=== PATIENT | male | born 1990 | race African-American/Black ===

== ENCOUNTER 2021-03-19 18:24 | Emergency (ER) | payer SELFPAY ==
[~2021-03-19] VITALS: Ht 165.1 cm; Wt 111.0 kg
--- NOTE | 2021-03-19 19:22 | PHYS DOC ---
Past History Past Surgical History: No Surgical History Alcohol Use: Occasionally Adult General Chief Complaint Chief Complaint: ABDOMINAL PAIN HPI HPI Patient is a 31-year-old male, otherwise healthy who presents with a chief complaint of a month of intermittent, abdominal pain, around his bellybutton, coming and going, 6 out of 10 at its worst, dull and achy in nature with no radiation or associated nausea, vomiting, diarrhea. States that he has a friend who is a nurse and who thinks it may be a hernia. Denies any recent traumas, illnesses, fevers, chest pain, shortness of breath, dysuria, hematuria, blood in the stool or diarrhea. States he is otherwise eating and drinking normally. Denies any alcohol or drug use. Review of Systems Review of Systems Review of systems otherwise unremarkable except noted in HPI Allergies Allergies Allergies Coded Allergies Type Severity Reaction Last Updated Verified No Known Drug Allergies 03/19/21 No Physical Exam Physical Exam Constitutional: Well developed, well nourished, no acute distress, non-toxic appearance. [] HENT: Normocephalic, atraumatic, bilateral external ears normal, oropharynx moist, no oral exudates, nose normal. [] Eyes: conjunctiva normal, no discharge. [] Neck: Normal range of motion, no tenderness, supple, no stridor. [] Cardiovascular:Heart rate regular rhythm, no murmur [] Lungs & Thorax: Bilateral breath sounds clear to auscultation [] Abdomen: Bowel sounds normal, soft, very mild tenderness around the umbilicus w ith no obvious hernia, no masses, no pulsatile masses. [] Skin: Warm, dry, no erythema, no rash. [] Back: no CVA tenderness. [] Extremities: No tenderness, no cyanosis, no clubbing, ROM intact, no edema. [] Neurologic: Alert and oriented X 3, normal motor function, normal sensory function, no focal deficits noted. [] Psychologic: Affect normal, judgement normal, mood normal. [] Current Patient Data Vital Signs Vital Signs Date Time Temp Pulse Resp B/P (MAP) Pulse Ox O2 Delivery O2 Flow Rate FiO2 03/19/21 18:40 99.5 96 20 152/98 (116) 98 Room Air EKG EKG [] Radiology/Procedures Radiology/Procedures []omparisons: None FINDINGS: Heart size is normal. No pericardial effusion. Visualized lung bases are clear. No pleural effusion. Evaluation of solid organs is limited secondary to noncontrast technique. Liver, spleen, pancreas, gallbladder and adrenals are unremarkable. No perinephric inflammation or hydronephrosis. No renal or ureteral calculi are identified. Bladder is partially distended and not well evaluated. Prostate is not enlarged. Large and small bowel are unremarkable. Appendix is normal. No free intra- abdominal air or fluid. No obstruction. Abdominal aorta has normal course and caliber. No enlarged intra-abdominal lymph nodes are identified. No suspicious osseous lesions or acute fractures. Small fat-containing umbilical hernia. IMPRESSION: Small fat-containing umbilical hernia. No herniated bowel or evidence for obstruction. Heart Score C/O Chest Pain: No Risk Factors: Risk Factors: DM, Current or recent (<one month) smoker, HTN, HLP, family history of CAD, obesity. Risk Scores: Risk Factors: DM, Current or recent (<one month) smoker, HTN, HLP, family history of CAD, obesity. Course & Med Decision Making Course & Med Decision Making Patient is a 31-year-old male who presents the emergency department with a month of intermittent abdominal pain concern for hernia Vital signs not concerning. Physical exam noted above. Patient denies need for pain or nausea medicine at this time. Laboratory analysis not concerning. CT with a tiny small fat-containing umbilical hernia with no signs of obstruction, strangulation or incarceration. Discussed all findings with patient and management of symptoms at home. Advised to follow-up in the morning with his primary care physician. Gave return precautions to the ED. Patient grateful, verbalized understanding and agreed with plan of discharge. Dragon Disclaimer Dragon Disclaimer This electronic medical record was generated, in whole or in part, using a voice recognition dictation system. Departure Departure: Impression: Primary Impression: Umbilical hernia Disposition: HOME / SELF CARE / HOMELESS Condition: GOOD Referrals: PCP,NO (PCP) PAULA RAMIREZ MD Patient Instructions: Hernia Additional Instructions: Thank you for coming into the emergency department today and allowing us to take care of you. Please read the attached information above on your small umbilicus/bellybutton hernia. Please call your primary care physician in the morning or the one at the number provided to establish care and discuss further evaluation and treatment. Please come back to the ED with new or concerning symptoms as discussed. ERENDIRA WEINSTEIN MD Mar 19, 2021 19:22
[2021-03-19 20:17] VITALS: BP 148/90
--- NOTE | 2021-03-19 20:42 | RAD ---
Exam: CT of abdomen and pelvis without contrast INDICATION: Umbilical pain for a month TECHNIQUE: Sequential axial images through the abdomen and pelvis obtained without IV contrast. Sagit itz and coronal reformatted images were reconstructed from the axial data and reviewed. Exposure: One or more of the following in the visualized dose reduction techniques were utilized for this examination: 1. Automated exposure control 2. Adjustment of the MA and/or KV according to patient size 3. Use of iterative of reconstructive technique Comparisons: None FINDINGS: Heart size is normal. No pericardial effusion. Visualized lung bases are clear. No pleural effusion. Evaluation of solid organs is limited secondary to noncontrast technique. Liver, spleen, pancreas, gallbladder and adrenals are unremarkable. No perinephric inflammation or hydronephrosis. No renal or ureteral calculi are identified. Bladder is partially distended and not well evaluated. Prostate is not enlarged. Large and small bowel are unremarkable. Appendix is normal. No free intra-abdominal air or fluid. No obstruction. Abdominal aorta has normal course and caliber. No enlarged intra-abdominal lymph nodes are identified. No suspicious osseous lesions or acute fractures. Small fat-containing umbilical hernia. IMPRESSION: Small fat-containing umbilical hernia. No herniated bowel or evidence for obstruction. Electronically signed by: Therese Salvador MD (03/19/2021 8:39 PM) [facility]
== END 2021-03-19 21:09 | disposition home or self-care (01) ==
LOC: ER 18:37
DX: K42.9 Umbilical hernia without obstruction or gangrene (principal)
CPT/HCPCS: 74176; 99284-25